=== PATIENT | male | born 1955 | race Caucasian/White ===

== ENCOUNTER 2020-04-02 08:02 | Inpatient (IN) ==
[2020-03-26 13:30] LABS: Appearance,Urine CLEAR; Bilirubin,Urine NEG (NEG); Color,Urine COLORLESS; Culture Indicated,Urine NO; Glucose,Urine (UA) NEGATIVE (NEG); Ketones,Urine NEG (NEG); Leukocyte Esterase,Urine NEG /uL (NEG); Nitrate,Urine NEG (NEG); Protein,Urine NEG (NEG); Specific Gravity,Urine 1.004 (1.000-1.035); Urine Blood NEG mg/dL (<0.03); Urobilinogen,Urine NEG (NEG)
[2020-03-26 15:01] LABS: Basophils # (Auto) 0.11 K/mcL (0.00-0.30); Basophils % (Auto) 1.5 % (0.0-2.0); Eosinophils # (Auto) 0.23 K/mcL (0.00-0.70); Eosinophils % (Auto) 3.1 % (0.0-7.0); Granulocytes % (Auto) 53.5 % (38.0-78.0); Hematocrit 46.9 % (40.1-51.0); Hemoglobin 15.3 g/dL (13.7-17.5); Lymphocytes # (Auto) 2.58 K/mcL (1.50-4.80); Lymphocytes % (Auto) 34.5 % (15.5-49.0); Mean Cell Volume 98.3 fL (80.0-100.0); Mean Corpuscular HGB Conc 32.6 g/dL (31.0-36.0); Mean Platelet Volume 9.6 fL (7.4-10.4); Monocytes # (Auto) 0.55 K/mcL (0.10-0.90); Monocytes % (Auto) 7.4 % (1.0-12.0); Platelet Count 353 K/mcL (140-440); RBC 4.77 M/mcL (4.63-6.08); Red Cell Distribution Width 13.6 % (11.5-14.5); WBC 7.5 K/mcL (4.50-11.00)
[2020-03-26 15:49] LABS: Blood Urea Nitrogen 13 mg/dl (8-23); Calcium 9.4 mg/dl (8.6-10.4); Carbon Dioxide 21 mmol/L (22-30); Chloride 103 mmol/L (96-108); Glomerular Filtration Rate 70; Glucose 98 mg/dL (70-105)
[~2020-04-02 08:02] MED LIST: CELECOXIB 200 MG CAPSULE PO SCH; IPRATROPIUM/ALBUTEROL 3 ML AMPUL.NEB NEB PRN; PREGABALIN 75 MG CAPSULE PO SCH; SCOPOLAMINE 1 PATCH PATCH TOPICAL PRN; ceFAZolin 2 GM in DEXTROSE 5% IN WATER 50 ML IV SCH; oxyCODONE 10 MG TAB.ER.12H PO SCH
[2020-04-02] MEDS ORDERED: GENTAMICIN SULFATE 800 MG/20 ML VIAL IR ONE (09:59)
[2020-04-02] MEDS ORDERED: GLYCOPYRROLATE 0.2 MG/ML VIAL IV ONE (10:30)
[2020-04-02] MEDS ORDERED: METOPROLOL TARTRATE 5 MG/5 ML VIAL IV ONE (10:30)
[2020-04-02] MEDS ORDERED: fentaNYL 250 MCG/5 ML VIAL IV ONE (10:30)
[2020-04-02] MEDS ORDERED: ROPIVACAINE HCL/PF 20 ML VIAL IJ ONE (10:30)
[2020-04-02] MEDS ORDERED: PHENYLEPHRINE 10 MG/ML VIAL IV ONE (10:30)
[2020-04-02] MEDS ORDERED: ONDANSETRON 4 MG/2 ML VIAL IV ONE (10:30)
[2020-04-02] MEDS ORDERED: PROPOFOL 200 MG/20 ML VIAL IV ONE (10:30)
[2020-04-02] MEDS ORDERED: HYDROmorphone 1 MG/ML SYRINGE IV ONE (10:30)
[2020-04-02] MEDS ORDERED: MIDAZOLAM 2 MG/2 ML VIAL IV ONE (10:30)
[2020-04-02] MEDS ORDERED: LIDOCAINE HCL/PF 100 MG/5 ML SYRINGE IV ONE (10:30)
[2020-04-02] MEDS ORDERED: KETAMINE 100 MG/ML ML IV ONE (10:30)
[2020-04-02] MEDS ORDERED: TRANEXAMIC ACID 1,000 MG/10 ML VIAL IV ONE (10:30)
[2020-04-02] MEDS ORDERED: DEXAMETHASONE 10 MG/ML VIAL IV ONE (10:30)
[2020-04-02] MEDS ORDERED: SUCCINYLCHOLINE 20 MG/ML ML IV ONE (10:30)
[2020-04-02] MEDS ORDERED: HYDROmorphone 0.5 MG/0.5 ML SYRINGE IV PRN (11:07)
[2020-04-02] MEDS ORDERED: FLUMAZENIL 0.1 MG/ML ML IV PRN (11:07)
[2020-04-02] MEDS ORDERED: METHOCARBAMOL 1,000 MG/10 ML VIAL IV PRN (11:07)
[2020-04-02] MEDS ORDERED: MEPERIDINE 50 MG/ML INJECTION IM PRN (11:07)
[2020-04-02] MEDS ORDERED: ACETAMINOPHEN 1,000 MG/100 ML BOTTLE IV ONE (11:07)
[2020-04-02] MEDS ORDERED: PROMETHAZINE 25 MG/ML VIAL IV PRN (11:07)
[2020-04-02] MEDS ORDERED: LABETALOL 5 MG/ML ML IV PRN (11:07)
[2020-04-02] MEDS ORDERED: NALOXONE HCL 0.4 MG/ML VIAL IV PRN (11:07)
[2020-04-02] MEDS ORDERED: LACTATED RINGERS 250 ML IV PRN (11:07)
[2020-04-02] MEDS ORDERED: PROMETHAZINE 25 MG/ML VIAL IM PRN (11:07)
[2020-04-02] MEDS ORDERED: MEPERIDINE 25 MG/ML SYRINGE IV PRN (11:07)
[2020-04-02] MEDS ORDERED: BENZOCAINE/MENTHOL 1 LOZENGE PO PRN ×2 (11:07→11:48)
[2020-04-02] MEDS ORDERED: IPRATROPIUM/ALBUTEROL 3 ML AMPUL.NEB NEB PRN (11:07)
[2020-04-02] MEDS ORDERED: LACTATED RINGERS 1,000 ML IV SCH (11:15)
--- NOTE | 2020-04-02 11:47 | General Surgery Procedure Note ---
Date of procedure: Note initiated : 04/02/20 at 11:46 am Service Date, if different from initiated Date: [] Pre-op diagnosis: right shoulder rtc tear, osteoarthritis Post-op diagnosis: same Procedure: right reverse total shoulder arthroplasty Anesthesia: EDUARDO Surgeon: Julián Stallings Body Mechanic: Yanely Miller Estimated blood loss: 150 Pathology: none sent Condition: stable Disposition: PACU
[2020-04-02] MEDS ORDERED: METHOCARBAMOL 750 MG TABLET PO PRN (11:48)
[2020-04-02] MEDS ORDERED: MAGNESIUM HYDROXIDE 30 ML ORAL.SUSP PO PRN (11:48)
[2020-04-02] MEDS ORDERED: ONDANSETRON 4 MG/2 ML VIAL IV PRN (11:48)
[2020-04-02] MEDS ORDERED: ONDANSETRON 4 MG ODT TABLET SL PRN (11:48)
[2020-04-02] MEDS ORDERED: TRANEXAMIC ACID 1,000 MG/10 ML VIAL IV SCH (11:48)
[2020-04-02] MEDS ORDERED: KETOROLAC 15 MG/ML VIAL IV PRN (11:48)
[2020-04-02] MEDS ORDERED: morphine 4 MG/ML VIAL IV PRN (11:48)
[2020-04-02] MEDS ORDERED: POLYETHYLENE GLYCOL 3350 17 GM PACKET PO PRN (11:48)
[2020-04-02] MEDS ORDERED: BISACODYL 10 MG SUPP.RECT PR PRN (11:48)
[2020-04-02] MEDS ORDERED: FLEETS ADULT ENEMA PR PRN (11:48)
--- NOTE | 2020-04-02 11:48 | Discharge Plan ---
Discharge Instructions - [facility] Patient Instructions Total Shoulder Protocol: Leave immobilizer in place except for bathing and ROM. Abduction pillow. Continue to wear sling until seen by physician. Codman Pendulum : These exercises use momentum produced by your body to move your shoulder joint. Bend your knees and shift your weight to your front leg, then back, allowing your arm to swing in the same directions. Using the same technique, alternately shift your weight between your right and left legs, allowing your arm to swing from side to side. These exercises are also performed in counterclockwise and clockwise circular motions. Typically these exercises are performed several times per day, for a set number repetitions or minutes, such as 20 times in a row or 5 minutes at a time.
--- NOTE | 2020-04-02 12:19 | Operative Note ---
DATE OF OPERATION: 04/02/2020 PREOPERATIVE DIAGNOSES: 1. Right rotator cuff tear. 2. Right shoulder osteoarthritis. POSTOPERATIVE DIAGNOSES: 1. Right rotator cuff tear. 2. Right shoulder osteoarthritis. PROCEDURE: Right reverse total shoulder arthroplasty. SURGEON: Kenney Stallings M.D. SKID MAN SURGEON: Yanely Miller PA-C. The PA's assistance was required for the safe and efficient completion of the entire case. This provider's expertise and technical skill were required throughout the case. The PA assisted with preoperative coordination, intraoperative retraction, wound closure, dressing and splint application, as well as postoperative documentation and care coordination. ANESTHESIA: General. ESTIMATED BLOOD LOSS: 150 mL. COMPLICATIONS: None noted. SPECIMENS REMOVED: None. DRAINS: None. IMPLANTS: [employer] Delta Xtend modular eccentric epiphysis size 2, right ROLLE-coated, cementless; De[employer]uy Delta Xtend modular humeral stem size 14 ROLLE-coated, cementless; DePuy Delta Xtend humeral polyethylene cup standard 38, +3; DePuy Delta Xtend cementless metaglene; De[employer]uy Delta Xtend locking metaglene screw 4.5 x 30 times 2 and 4.5 x 24 times 2; DePuy Delta Xtend standard glenosphere 38 mm. INDICATIONS: The patient has had a previous rotator cuff repair and a revision that has gone on to fail with advancing osteoarthritis seen on radiographs. After a long discussion about treatment options, the patient elected to proceed with a reverse total shoulder arthroplasty. The risks and benefits were discussed with the patient in detail including, but not limited to, the risks of anesthesia, problems with the heart or lungs related to anesthesia, infection, compromise or injury to the nerves and blood vessels, deep venous thrombosis, pulmonary embolism, pneumonia, continued pain after surgery, worsening pain or symptoms after surgery, swelling, loss of motion, instability, fracture, arm length discrepancy, and need for repeat surgery. DESCRIPTION OF PROCEDURE: The patient was seen in the preanesthesia waiting room where all questions were answered and the correct side and site were identified and marked. The patient was transferred to the operating room and administered the anesthetic and given preoperative antibiotics. A timeout was then called. The patient was placed in the modified beach chair position with all prominences well padded. The extremity was prepped and draped from the fingers up to the neck. A standard deltopectoral skin incision was created. Dissection was carried down to the deltopectoral groove and the cephalic vein was isolated medially and retracted laterally with the deltoid. Retractors were placed and the coracobrachialis was split up to the coracoacromial ligament allowing retraction of the conjoined tendon. We split the subscapularis 1 cm medial to the bicipital groove and extended the split into the rotator interval. This was tagged for later repair. The supraspinatus and infraspinatus had been previously torn and retracted. A capsular release was performed in a posterior subperiosteal direction along the humerus. The humeral head was then dislocated. We established intramedullary access and hand reamed up to get good cortical chatter with the [employer] Delta XTEND reverse total shoulder instrumentation. We then used the intramedullary guide and set to about 5 degrees of retroversion. The proximal humerus cut was performed and osteophytes were removed. A metal protector plate was then placed. Attention was then turned to the glenoid. Retractors were placed for optimal visualization and the labrum was excised in its entirety. A centralizing Steinmann pin was placed just into the posterior inferior quadrant in a standard fashion. We reamed over the pin to remove all the cartilage and get to a good base for the prosthesis. The drill was then placed over for the central peg. A cementless Metaglene was then impacted into place. We then drilled, measured, and placed the four screws starting inferior, then superior, then anterior, and finally posterior. The superior locking screw was lined up at the base of the coracoid process. We then impacted the head onto the Metaglene and tightened down in a standard fashion. Attention was then turned back to the humerus. Proximal reaming was performed off the intramedullary guide into the humeral head, using the eccentric guide to allow best coverage. We again set version and broached up to a stable implant. Trials were placed and good tension, motion, and stability were obtained at this point. Trials were removed and the final press fit femoral prosthesis was impacted into place with measured version. The final polyethylene was placed and the shoulder was reduced and again checked for motion, tension, and stability. We irrigated with 3 liters of antibiotic saline and closed the subscapularis with # 2 FiberWire. We irrigated again and closed the deltopectoral interval with several # 0 Vicryl figure of eight sutures. The subcutaneous layer was closed with 2-0 Vicryl and the skin was closed with 4-0 Monocryl in a subcuticular fashion. A sterile pressure dressing was applied and the patient was placed into an abduction sling. All needle and sponge counts were correct. The patient was transferred to the recovery room in stable condition. UNRULY:ari Job ID: [id number] Doc ID: [id number] Kenney Stallings MD
[2020-04-02] MEDS: fentaNYL 100 MCG/2 ML VIAL IV PRN ×2 (13:02→13:04)
[2020-04-02] MEDS: METOPROLOL TARTRATE 5 MG/5 ML VIAL IV PRN ×2 (13:03→13:09)
--- NOTE | 2020-04-02 13:04 | XRay Report ---
HISTORY: Postop right shoulder arthroplasty FINDINGS: There is a well-positioned reverse shoulder prosthesis. There is no fracture or abnormal soft tissue calcification. IMPRESSION: Well-positioned right shoulder prosthesis Interpreted and Authenticated by: Antoni Mckeon 04/02/20
[2020-04-02] MEDS: HYDROcodone/APAP 10/325MG TABLET PO PRN ×3 (15:02→23:50)
[2020-04-02] MEDS: 0.9 % SODIUM CHLORIDE 10 ML SYRINGE IV SCH ×2 (15:03→20:08)
[2020-04-02] MEDS: LACTATED RINGERS 1,000 ML IV SCH ×2 (16:38→18:27)
[2020-04-02] MEDS: ceFAZolin 1 GM VIAL IV SCH (18:08)
[2020-04-02] MEDS: TAMSULOSIN 0.4 MG CAPSULE PO SCH ×2 (18:26→20:08)
[2020-04-02] MEDS: DOCUSATE SODIUM 100 MG CAPSULE PO SCH (20:07)
[2020-04-02] MEDS ORDERED: SENNOSIDES 1 TABLET PO SCH (21:00)
[2020-04-02] MEDS ORDERED: SERTRALINE 100 MG TABLET PO SCH (21:00)
[2020-04-03] MEDS: ceFAZolin 1 GM VIAL IV SCH (01:58)
[2020-04-03] MEDS: HYDROcodone/APAP 10/325MG TABLET PO PRN ×2 (04:06→08:19)
[2020-04-03] MEDS: LACTATED RINGERS 1,000 ML IV SCH (04:06)
[2020-04-03] MEDS: 0.9 % SODIUM CHLORIDE 10 ML SYRINGE IV SCH (04:37)
--- NOTE | 2020-04-03 07:04 | General Surgery Progress Note ---
SUBJECTIVE Subjective Patient information: Note initiated : 04/03/20 at 7:02 am Service Date, if different from initiated Date: [] Patient: Julián Harkins 64 y/o M admitted on 04/02/20 for Right Reverse Total Shoulder Arthroplasty. Chief Complaint: [] Interval history: Narrative: doing well no complaints Constitutional Vitals: Vital Signs Temp Pulse Resp BP Pulse Ox 97.8 F 67 12 140/80 96 04/03/20 04:19 04/03/20 04:19 04/03/20 04:19 04/03/20 04:19 04/03/20 04:19 Period Temp Pulse Resp BP Sys/Lisa Pulse Ox Last 24 Hr 97.2 F-98.5 F 67-79 12-20 116-179/72-102 95-100 Intake and Output 04/02/20 04/03/20 04/03/20 21:59 05:59 13:59 Intake Total 450 200 Output Total 100 700 Balance 350 -500 Weight 208 lb Intake & Output: Intake & Output 04/02/20 04/03/20 04/03/20 21:59 05:59 13:59 Intake Total 450 200 Output Total 100 700 Balance 350 -500 Weight 208 lb Intake: Oral 450 200 Output: Void Amount 100 700 Other: Urine Appearance Clear Urine Color Bright Yellow Additional findings Additional findings: dressing clean, dry, in place, sling intact from wrist, fingers 2+ radial pulse A/P Narrative A/P Narrative: Narrative: pod 1 s/p reverse tsa nwb pain control sling pt home today Time Spent With Patient Time: Total time spent is greater than 50% in coordination of care (as doc umented) at patient's floor/unit and/or counseling patient:
[2020-04-03 07:39] LABS: Hematocrit 45.7 % (40.1-51.0); Hemoglobin 15.2 g/dL (13.7-17.5)
[2020-04-03] MEDS: DOCUSATE SODIUM 100 MG CAPSULE PO SCH (08:20)
== END 2020-04-03 08:34 | disposition home or self-care (01) | DRG 483 ==
LOC: MEDSUR 08:02
PROVIDERS: ADMIT Orthopaedic Surgery Sports Medicine; ATTEND Orthopaedic Surgery Sports Medicine